=== PATIENT | female | born 1945 | race African-American/Black ===

== ENCOUNTER 2016-08-08 12:48 | Emergency (ER) | payer OTHER ==
[~2016-08-08] VITALS: Ht 162.6 cm; Wt 66.2 kg
[~2016-08-08 12:48] MED LIST: IBUPROFEN 800800 M1 PO; VALACYCLOVIR1000 MG PO; VALIUM5 MG PO; VALSARTAN-HCTZ1 EAC4 PO; ZOFRAN ODT4 MG DISSOLVE
[2016-08-08 14:50] VITALS: BP 135/87
[2016-08-08] MEDS ORDERED: MOBIC15 MG PO (15:14)
[2016-08-08] MEDS ORDERED: TESSALON PERLE100 MG PO (15:14)
== END 2016-08-08 15:38 | disposition home or self-care (01) ==
LOC: ER 12:48
DX: B34.9 Viral infection, unspecified (principal); I10 Essential (primary) hypertension; Z86.11 Personal history of tuberculosis; F10.99 Alcohol use, unspecified with unspecified alcohol-induced disorder

== ENCOUNTER 2020-07-19 17:29 | Emergency (ER) | payer OTHER ==
[~2020-07-19] VITALS: Ht 162.6 cm; Wt 59.0 kg
[~2020-07-19 17:29] MED LIST changes: +ATIVAN0.5 MG PO; +MOBIC15 MG PO; +POTASSIUM20 PO; +TESSALON PERLE100 MG PO
[2020-07-19 18:18] LABS: ABSOLUTE NEUTROPHILS 6.6 thou/uL (1.4-8.2); BASOPHILS 0.6 % (0.0-2.0); EOSINOPHILS 0.8 % (0.0-3.0); HEMATOCRIT 24.7 % (37.0-47.0); HEMOGLOBIN 8.4 gm/dL (12.0-15.0); LYMPHOCYTES 16.3 % (24.0-44.0); MCH 30.2 pg (26.0-34.0); MCHC 34.1 g/dL (28.0-37.0); MCV 88.4 fL (80.0-100.0); MONOCYTES 10.1 % (1.0-8.0); PLATELET COUNT 664 thou/uL (150-400); POLYS 72.2 % (36.0-66.0); RBC 2.79 mil/uL (4.20-5.00); WBC 9.1 thou/uL (4.0-11.0)
[2020-07-19 18:32] LABS: URINE BILIRUBIN NEGATIVE (Negative); URINE BLOOD NEGATIVE (Negative); URINE CLARITY CLEAR; URINE COLOR YELLOW; URINE GLUCOSE-RANDOM* NEGATIVE (Negative); URINE KETONES TRACE (Negative); URINE LEUKOCYTES-REFLEX NEGATIVE (Negative); URINE NITRITE-REFLEX NEGATIVE (Negative); URINE PROTEIN (DIPSTICK) NEGATIVE (Negative); URINE SPECIFIC GRAVITY 1.025 (1.005-1.035)
[2020-07-19 18:39] LABS: CALCIUM 8.5 mg/dL (8.5-10.1); CREATININE 1.4 mg/dL (0.6-1.0); POTASSIUM 3.1 mmol/L (3.5-5.1)
[2020-07-19 18:52] LABS: ALBUMIN 2.9 g/dL (3.4-5.0); TOTAL BILIRUBIN 0.5 mg/dL (0.2-1.0); TOTAL PROTEIN 7.4 g/dL (6.4-8.2)
[2020-07-19 21:35] VITALS: BP 131/73
== END 2020-07-19 21:32 | disposition short-term general hospital (02) ==
LOC: ER 17:29
PROVIDERS: Nurse Practitioner Family
DX: R18.8 Other ascites (principal); D64.9 Anemia, unspecified; E87.6 Hypokalemia; I10 Essential (primary) hypertension; Z79.899 Other long term (current) drug therapy